=== PATIENT | female | born 1980 | race American Indian/Alaskan Native ===

== ENCOUNTER 2016-09-25 20:38 | Emergency (ER) | payer SELFPAY ==
[2016-09-25 20:51] VITALS: BP 135/95
--- NOTE | 2016-09-25 21:22 | Emergency Department Report ---
Chief Complaint: Headache Stated Complaint: HEADACHE/HIGH BP Time Seen by Provider: 09/25/16 21:17 - HPI History of Present Illness: Patient is a 35-year-old female who presents to the ED complaining of some, throbbing, 6 out of 10 in intensity, nonradiating headache 4 days. Patient states her blood pressure is elevated for about 4 days now and she noticed headache started about the same time her blood pressure has been rising. Patient states she has never been diagnosed with hypertension. Patient states her last time she had a left pressure was about 7 years ago when she was with her son. Patient admits intermittent blurry vision since elevated blood pressure. Patient states she is being taken Advil and since given her some relief but the headache comes back after several hours. States last Mariia was taken to PMD today Patient states she's been having her nurse at the [facility] to get a blood pressure and it's been in the ranges of 145-150/95-100. Patient denies fevers/chills/nausea/vomiting/loss of consciousness/S of breath/ chest pain/cough/history of migraine/trauma/fall/loss of vision - ROS Review of Systems: As noted in HPI - Exam Vital Signs: Vital Signs 09/25/16 20:47 Temperature 98.4 F Pulse Rate 73 Respiratory 18 Rate Blood Pressure 135/95 O2 Sat by Pulse 99 Oximetry Physical Exam: GENERAL: Alert and oriented x3, no apparent distress, Normal Gait, atraumatic. HEAD: Head is normocephalic and a-traumatic. EYES: Extra ocular muscles are intact. Pupils are equal, round, and reactive to light and accommodation. NECK: Supple. Non edematous, No carotid bruits. No lymphadenopathy or thyromegaly. LUNGS: Symetrical with respiration, No wheezing, no rales or crackles, CTAB. HEART: S1, S2 present, regular rate and rhythm without murmur, no rubs, no gallops. ABDOMEN: No organomegaly was noted,Positive bowel sounds, soft, and non- distended. . Nontender to palpation on all Quadrants, NO CVA tenderness. NEUROLOGIC: No focal Deficit, Cranial nerves II through XII are grossly intact. No loss of sensation, No facial droop, SKIN: Warm and dry, No lesions, No ulceration or induration present. MSE screening note: Focused history and physical exam performed. Due to findings the following was ordered: ED Medical Decision Making - Medical Decision Making Patient is neurological intact. Patient can be seen by fast track provider. Vital signs stable Discussed with patient will need a referral for primary care physician for management of blood pressure. ED Disposition for MSE Condition: Stable
--- NOTE | 2016-09-26 18:54 | ED Elopement Review ---
ED Pt Elopement review - Call Back decision Pt Call Back Decision: Pt to F/U with PMD
== END 2016-09-25 23:35 | disposition left against medical advice (07) ==
LOC: ED 20:38
DX: R51 Headache (principal); Z53.21 Procedure and treatment not carried out due to patient leaving prior to being seen by health care provider